=== PATIENT | female | born 1990 | race Caucasian/White ===

== ENCOUNTER 2020-03-08 06:44 | Emergency (ER) | payer BC, MEDICAID ==
[~2020-03-08] VITALS: Ht 162.6 cm; Wt 68.2 kg
[2020-03-08 06:46] VITALS: BP 109/67
[2020-03-08] MEDS ORDERED: ONDANSETRON 2MG/ML, 2ML IVPush ONE (07:00)
[2020-03-08] MEDS ORDERED: KETOROLAC 30 MG/1 ML IVPush ONE (07:00)
[2020-03-08] MEDS ORDERED: SODIUM CHLORIDE 0.9%, 500ML IVBOLUS ONE (07:00)
[2020-03-08] MEDS ORDERED: KETOROLAC 30 MG/1 ML ONE (07:05)
[2020-03-08] MEDS ORDERED: ONDANSETRON 2MG/ML, 2ML ONE (07:06)
[2020-03-08] MEDS ORDERED: PLEASE ENTER ALLERGIES MC SCH (07:30)
--- NOTE | 2020-03-08 08:18 | NUR ---
ambulated to phone without assistance attempting to get a hold of ride
== END 2020-03-08 08:30 | disposition home or self-care (01) ==
LOC: ED 08:00
DX: F10.120 Alcohol abuse with intoxication, uncomplicated (principal); R41.82 Altered mental status, unspecified; Y90.9 Presence of alcohol in blood, level not specified
CPT/HCPCS: 96361; 96374; 96375; 99284; J1885; J2405; J7040